=== PATIENT | male | born 1985 | race Caucasian/White ===

== ENCOUNTER 2020-01-01 00:42 | Emergency (ER) | payer SELFPAY ==
[~2020-01-01] VITALS: Ht 170.2 cm; Wt 73.0 kg
[2020-01-01] MEDS ORDERED: MAGNESIUM/ALUMINUM HYDROXIDE/SIMETHICONE 30ML UDC PO ONE (03:15)
[2020-01-01] MEDS ORDERED: VISCOUS LIDOCAINE 2% 15 ML UDC PO ONE (03:15)
[2020-01-01] MEDS ORDERED: ASPIRIN 81MG TABLET PO ONE (03:15)
[2020-01-01 03:34] LABS: BASOPHILS % 0.3 % (0.0-2.0); EOSINOPHILS % 1.5 % (0.0-5.0); HEMATOCRIT. 43.8 % (42.0-52.0); HEMOGLOBIN. 15.1 g/dL (14.0-18.0); LYMPHOCYTES % 18.1 % (20.0-50.0); MEAN CORPUSCULAR HEMOGLOBIN 31.5 pg (28.0-32.0); MEAN CORPUSCULAR VOLUME 91.7 fL (80.0-94.0); MEAN PLATELET VOLUME 7.4 fl (7.4-10.4); MONOCYTES % 9.9 % (2.0-8.0); NEUTROPHILS % 70.2 % (40.0-76.0); PLATELET 280 x1000/uL (130-400); RED BLOOD CELL COUNT 4.77 mill/uL (4.7-6.1); RED CELL DISTRIBUTION WIDTH 13.2 % (11.6-14.6)
[2020-01-01 03:40] LABS: CHLORIDE 106 mEq/L (98-107)
[2020-01-01 06:00] VITALS: BP 111/71
== END 2020-01-01 06:00 | disposition home or self-care (01) ==
LOC: ER 00:42
DX: R07.89 Other chest pain (principal); R06.02 Shortness of breath
CPT/HCPCS: 36415; 71045; 80053; 83880; 84484; 85025; 93005; 99285; Z7610

== ENCOUNTER 2020-01-12 19:31 | Inpatient (IN) | payer SELFPAY ==
[~2020-01-12] VITALS: Ht 177.8 cm; Wt 125.8 kg
[2020-01-12 20:00] VITALS: BP 110/65
[2020-01-12] MEDS ORDERED: KETOROLAC 30MG/ML VIAL IV STA (20:49)
[2020-01-12] MEDS ORDERED: MAGNESIUM/ALUMINUM HYDROXIDE/SIMETHICONE 30ML UDC PO ONE (21:00)
[2020-01-12] MEDS ORDERED: ASPIRIN 81MG TABLET PO ONE (21:00)
[2020-01-12] MEDS ORDERED: VISCOUS LIDOCAINE 2% 15 ML UDC PO ONE (21:00)
[2020-01-12 21:29] LABS: BASOPHILS % 0.4 % (0.0-2.0); HEMOGLOBIN. 14.8 g/dL (14.0-18.0); MEAN CORPUSCULAR HEMOGLOBIN 31.9 pg (28.0-32.0); MEAN CORPUSCULAR VOLUME 92.4 fL (80.0-94.0); MEAN PLATELET VOLUME 7.7 fl (7.4-10.4); MONOCYTES % 9.9 % (2.0-8.0); NEUTROPHILS % 57.7 % (40.0-76.0); PLATELET 272 x1000/uL (130-400); RED BLOOD CELL COUNT 4.66 mill/uL (4.7-6.1); RED CELL DISTRIBUTION WIDTH 13.1 % (11.6-14.6)
[2020-01-12 21:41] LABS: CHLORIDE 104 mEq/L (98-107)
[2020-01-13] MEDS ORDERED: ACETAMINOPHEN 325MG TABLET PO PRN (01:00)
[2020-01-13] MEDS ORDERED: ONDANSETRON HCL 4MG/2ML INJ IV PRN (01:00)
[2020-01-13] MEDS ORDERED: TRAZODONE HCL 50MG TABLET PO PRN (01:00)
[2020-01-13] MEDS ORDERED: NAPR500T7 PO (03:16)
[2020-01-13] MEDS ORDERED: FAMO10TA41 MT (03:16)
[2020-01-13] MEDS ORDERED: INFLUENZA VACCINE 05/PF 0.5 ML VIAL IM ONE (05:00)
[2020-01-13 08:00] VITALS: BP 100/58
[2020-01-13] MEDS ORDERED: HEPARIN 5000 UNITS/ML VIAL SUBCUT SCH (09:00)
[2020-01-13] MEDS ORDERED: REGADENOSON 0.4 MG/5 ML IV NR (11:45)
[2020-01-13] MEDS ORDERED: REGADENOSON 0.4 MG/5 ML IV ONE (14:02)
[2020-01-13] MEDS ORDERED: TOPUD PO (15:29)
[2020-01-13 16:00] VITALS: BP 112/61
[2020-01-13 16:46] VITALS: BP 112/61
== END 2020-01-13 18:00 | disposition home or self-care (01) | DRG 203 ==
LOC: ER 19:31 → EDBEDREQ 01-13 00:08 → ENRESERV 01-13 00:12 → 8WST 01-13 00:54
PROVIDERS: ADMIT Internal Medicine; ATTEND Internal Medicine
DX: R07.9 Chest pain, unspecified (principal); R00.1 Bradycardia, unspecified; E66.01 Morbid (severe) obesity due to excess calories; E87.3 Alkalosis; I10 Essential (primary) hypertension; I44.0 Atrioventricular block, first degree; I45.10 Unspecified right bundle-branch block; Z83.3 Family history of diabetes mellitus; Z68.39 Body mass index [BMI] 39.0-39.9, adult
CPT/HCPCS: 36415; 71045; 78452; 80053; 83036; 83880; 84443; 84484; 85025; 90686; 93005; 93017; 99285; A9500; J1644; J1885; J2785

== ENCOUNTER 2020-08-05 14:46 | Emergency (ER) | payer MEDICAID ==
[~2020-08-05] VITALS: Ht 175.3 cm; Wt 74.0 kg
[~2020-08-05 14:46] MED LIST: FAMO10TA41 MT; TOPUD PO
[2020-08-05] MEDS ORDERED: KETOROLAC 60MG/2ML VIAL IM ONE (16:00)
[2020-08-05 16:26] LABS: BASOPHILS % 0.3 % (0.0-2.0); EOSINOPHILS % 1.6 % (0.0-5.0); HEMATOCRIT. 43.2 % (42.0-52.0); HEMOGLOBIN. 15.1 g/dL (14.0-18.0); LYMPHOCYTES % 25.5 % (20.0-50.0); MEAN CORPUSCULAR HEMOGLOBIN 31.5 pg (28.0-32.0); MEAN CORPUSCULAR VOLUME 90.3 fL (80.0-94.0); MEAN PLATELET VOLUME 7.6 fl (7.4-10.4); NEUTROPHILS % 60.6 % (40.0-76.0); PLATELET 309 x1000/uL (130-400); RED BLOOD CELL COUNT 4.79 mill/uL (4.7-6.1); RED CELL DISTRIBUTION WIDTH 12.8 % (11.6-14.6)
[2020-08-05 16:33] LABS: CHLORIDE 104 mEq/L (98-107)
[2020-08-05 16:44] LABS: CREATINE KINASE 133 IU/L (39-308)
[2020-08-05] MEDS ORDERED: TOPUD MT (17:13)
[2020-08-05 17:30] VITALS: BP 120/89
== END 2020-08-05 18:32 | disposition home or self-care (01) ==
LOC: ER 14:46
DX: M79.605 Pain in left leg (principal); M79.604 Pain in right leg; M79.662 Pain in left lower leg; M79.661 Pain in right lower leg; M79.642 Pain in left hand; M79.641 Pain in right hand; M79.602 Pain in left arm; M79.601 Pain in right arm; Z79.899 Other long term (current) drug therapy
CPT/HCPCS: 36415; 80053; 82550; 85025; 96372; 99283; J1885

== ENCOUNTER 2021-04-21 12:56 | Emergency (ER) | payer MEDICAID ==
[~2021-04-21] VITALS: Ht 165.1 cm; Wt 79.0 kg
[~2021-04-21 12:56] MED LIST changes: +TOPUD MT
[2021-04-21] MEDS ORDERED: KETOROLAC 30MG/ML VIAL IV STA (13:07)
[2021-04-21 14:12] LABS: BASOPHILS % 0.5 % (0.0-2.0); EOSINOPHILS % 1.5 % (0.0-5.0); HEMOGLOBIN. 15.3 g/dL (14.0-18.0); LYMPHOCYTES % 22.1 % (20.0-50.0); MEAN CORPUSCULAR HEMOGLOBIN 30.5 pg (28.0-32.0); MEAN CORPUSCULAR VOLUME 89.4 fL (80.0-94.0); MEAN PLATELET VOLUME 7.5 fl (7.4-10.4); MONOCYTES % 9.7 % (2.0-8.0); NEUTROPHILS % 66.2 % (40.0-76.0); PLATELET 323 x1000/uL (130-400); RED BLOOD CELL COUNT 5.03 mill/uL (4.7-6.1); RED CELL DISTRIBUTION WIDTH 12.9 % (11.6-14.6)
[2021-04-21 14:15] LABS: CLARITY URINE CLEAR (CLEAR); COLOR URINE YELLOW (YELLOW); KETONES URINE NEGATIVE (NEGATIVE); LEUKOCYTE ESTERASE URINE NEGATIVE (NEGATIVE); NITRITE URINE NEGATIVE (NEGATIVE); OCCULT BLOOD URINE NEGATIVE (NEGATIVE); PH URINE 5.5 (4.5-8.0); PROTEIN URINE NEGATIVE (NEGATIVE)
[2021-04-21 14:23] LABS: CHLORIDE 108 mEq/L (98-107)
[2021-04-21 17:54] VITALS: BP 121/75
== END 2021-04-21 17:55 | disposition home or self-care (01) ==
LOC: ER 13:05
DX: R10.32 Left lower quadrant pain (principal); Z98.890 Other specified postprocedural states
CPT/HCPCS: 36415; 74177; 80053; 81003; 83690; 85025; 96374; 99285; J1885